=== PATIENT | male | born 1935 | race Caucasian/White ===

== ENCOUNTER 2017-05-14 18:50 | Emergency (ER) | payer MEDICARE ==
--- NOTE | 2017-05-14 19:08 | Emergency Department Record ---
History of Present Illness - General Chief Complaint: Syncope Stated Complaint: SYNCOPE Time Seen by Provider: 05/14/17 19:02 Source: Patient, Family Mode of Arrival: EMS Limitations: No limitations - History of Present Illness Initial Comments: 81 yo male presents by EMS. The patient was taking a nap. He had been napping for about one hour. His reports she heard odd noises from the room. She entered the room and Mr. Chaney was moaning and "slobbering" with snoring like breathing. He would not respond to voice or to her shaking him. No shaking or obvious seizure by the patient. The patient's called EMS. On arrival the patient was found confused and not oriented. On arrival he was oriented to name , place and year. He has no recall of the events. He was incontinent of urine. No recent health concerns or symptoms. He had mowed earlier. He denies pain, headache, chest pain or dizziness. He had mowed the yard earlier in the day and went out for ice cream with his before the nap. PCP is Rodriguez , Cards is [facility]. GALINDO Complaint: Collapsed, Loss of consciousness -: Minutes(s) Prodromal Symptoms: Other (syncope) Description of Event: Incontinence Witnessed: Yes - by bystander Injuries Sustained Associated with Event: None Current Symptoms: None Context: Other (During nap) - [place] Coma Scale Eye Response: (4) Open spontaneously Motor Response: (6) Obeys commands Verbal Response: (5) Oriented N[place] Total: 15 - Related Data Home Medications Medication Instructions Recorded Confirmed Last Taken Clonazepam [Klonopin] 0.5 mg PO QHS 05/14/17 05/14/17 05/13/17 Meloxicam [Mobic] 15 mg PO DAILY 05/14/17 05/14/17 05/14/17 Metoprolol Succinate [Toprol Xl] 50 mg PO DAILY 05/14/17 05/14/17 05/14/17 Pioglitazone HCl [Actos] 30 mg PO DAILY 05/14/17 05/14/17 05/14/17 Simvastatin 40 mg PO DAILY 05/14/17 05/14/17 05/14/17 Tramadol HCl [Ultram] 50 mg PO BID 05/14/17 05/14/17 05/14/17 Allergies Allergy/AdvReac Type Severity Reaction Status Date / Time No Known Drug Allergies Allergy Verified 05/14/17 18:55 Review of Systems Constitutional: Denies: Chills, Fever, Malaise, Weakness Eyes: Denies: Eye discharge, Eye pain, Photophobia, Vision change ENT: Denies: Congestion, Throat pain Respiratory: Denies: Cough, Dyspnea, Hemoptysis, Stridor, Wheezes Cardiovascular: Reports: Syncope. Denies: Chest pain, Palpitations Endocrine: Denies: Fatigue Gastrointestinal: Denies: Abdominal pain, Constipation, Diarrhea, Nausea, Vomiting Genitourinary: Denies: Dysuria, Frequency, Hematuria Musculoskeletal: Denies: Arthralgia, Back pain, Joint swelling, Myalgia Skin: Denies: Bruising, Change in color, Rash Neurological: Reports: Confusion, Seizure. Denies: Headache, Numbness, Vertigo , Weakness Psychiatric: Denies: Anxiety Hematological/Lymphatic: Denies: Blood Clots, Easy bleeding, Easy bruising, Swollen glands Physical Exam - General General Appearance: Alert, Oriented x3, Cooperative, No acute distress, Anxious - Head Head exam: Normal inspection - Eye Eye exam: Normal appearance, PERRL, EOMI. negative: Conjunctival injection, Periorbital swelling - ENT ENT exam: Normal exam, Mucous membranes moist Ear exam: Normal external inspection Nasal Exam: Normal inspection Mouth exam: Normal external inspection - Neck Neck exam: Normal inspection, Full ROM. negative: Tenderness - Respiratory Respiratory exam: Normal lung sounds bilaterally. negative: Respiratory distress - Cardiovascular Cardiovascular Exam: Regular rate, Normal rhythm, Normal heart sounds Peripheral Pulses: 2+: Radial (R), Radial (L) - GI/Abdominal GI/Abdominal exam: Soft. negative: Tenderness - Rectal Rectal exam: Deferred - exam: Deferred - Extremities Extremities exam: Normal inspection, Full ROM, Normal capillary refill. negative: Tenderness - Back Back exam: Reports: Normal inspection, Full ROM. Denies: Muscle spasm, Rash noted, Tenderness - Neurological Neurological exam: Alert, Normal gait, Oriented X3, Reflexes normal - Psychiatric Psychiatric exam: Anxious - Skin Skin exam: Dry, Intact, Normal color, Warm Course - Reevaluation(s) Reevaluation #1: Vitals reviewed EKG 18:55 NSR, Intervals QRS 128 IVCD, QTc 484, axis left, Q is V1-V4, interted T waves new in V1V2, AVL compared to 05-01-16 05/14/17 19:09 Reevaluation #2: On recheck the patient is baseline without complaints or confusion Labs to this point were reviewed WBC 9, Hgb 15 on the CBC On the CMP AG is 18 with a BUN/CR of 30/1.5 Lactic Acid is elevated at 9.[address] was negative for acute bleed or mass. No acute infarct. Carotids noted to be atherosclerotic. Small vessel ischemic disease. Note: The differential certain includes seizure as he is on Tramadol and his Lactic Acid is elevated at 9.1 Arrhythmia is possible with new EKG changes and prolonged Qtc of 485 He appears dehydrated with BUN of 30 and elevation of CR at 1.5 I explained that [facility] does not have cardiology or neurology baton teacher this weekend and recommended transfer to [facility] for admission and consultations. 05/14/17 19:41 Reevaluation #3: Cardiac Enzymes reported Troponin is 0.012 CK is 266 and MG is 6.4 05/14/17 19:50 Reevaluation #4: [facility] at [facility] was contacted for transfer 05/14/17 20:05 05/14/17 20:[address] Campo. He requests a repeat lactic acid to ensure downward trend which will assist him in bed placement choice. The patient and family was updated on plan. Patient remains asymptomatic 05/14/17 20:37 Repeat Lactic Acid is 2.0 [facility] recontacted to update Reevaluation #5: EMS transport in ED Pt is stable at this time for transfer to [facility] 05/14/17 22:52 Medical Decision Making - Lab Data Result diagrams: 05/14/17 18:50 05/14/17 18:50 Disposition Disposition: Transfer Clinical Impression: Elevated lactic acid level, Renal insufficiency, Seizure-like activity Syncope Qualifiers: Syncope type: unspecified Qualified Code(s): R55 - Syncope and collapse Disposition: Acute Care Hospital Transfer Transfer To: [facility] Reason For Transfer: Syncope vs Seizure. Consultations Accepting Physician: Dr Bhakta Time Discussed w/Accepting Physician: 20:04 Condition: (2) Stable Forms: Patient Portal Access Time of Disposition: 19:48 Quality - Quality Measures Quality Measures: N/A - Blood Pressure Screening View Details: Yes Blood Pressure Classification: Pre-Hypertensive BP Reading Systolic Measurement: 143 Diastolic Measurement: 81 Screening for High Blood Pressure: < Pre-Hypertensive BP, F/U Documented > [ G8950] Pre-Hypertensive Follow-up Interventions: Referral to alternative/primary care provider.
[2017-05-14 19:18] LABS: BASO % 0.2 % (0-6); EOS % 2.4 % (0-6); GRAN % 55.8 % (47-80); HEMATOCRIT 44.9 % (42.0-52.0); HEMOGLOBIN 15.6 gm/dl (14.0-18.0); MEAN CELL VOLUME 91.8 fl (81-97); MEAN CORPUSCULAR HEMOGLOBIN 31.9 pg (27-33); MEAN CORPUSCULAR HGB CONC 34.7 g/dl (32-36); MEAN PLATELET VOLUME 8.7 fl (7.4-10.4); MONO % 6.6 % (0-9); PLATELET COUNT 166 K/uL (130-400); RED BLOOD COUNT 4.89 M/uL (4.40-5.70); RED CELL DISTRIBUTION WIDTH 13.6 % (11.5-14.5); WHITE BLOOD COUNT W/O DIFF 9.3 K/uL (4.2-12.2)
[2017-05-14 19:30] LABS: LACTIC ACID 9.1 mmol/L (0.7-2.1)
[2017-05-14 19:32] LABS: INR 1.08; PARTIAL THROMBOPLASTIN TIME 27.3 SECONDS (24.5-39.1); PROTHROMBIN TIME (PATIENT) 11.7 SECONDS (9.5-12.1)
[2017-05-14 19:35] LABS: BLOOD UREA NITROGEN 30 mg/dL (9-20); CREATININE 1.5 mg/dL (0.66-1.25); EST GLOMERULAR FILTRATION RATE 48 ml/min; GLUCOSE,RANDOM 141 mg/dL (70-110)
[2017-05-14 19:36] LABS: ALB/GLOB RATIO 1.6 (1.1-1.8); ALBUMIN 4.9 gm/dL (3.5-5.0); ALKALINE PHOSPHATASE 74 U/L (38-126); ALT/SGPT 43 U/L (21-72); AST/SGOT 37 U/L (17-59); CREATINE PHOSPHOKINASE 266 U/L (55-170)
[2017-05-14] MEDS ORDERED: 0.9 % SODIUM CHLORIDE 1000ML 1,000 ML IV ONE (19:40)
[2017-05-14 19:44] LABS: CKMB 6.4 ug/L (0-6); TROPONIN I < 0.012 ng/mL (0.00-0.034)
[2017-05-14 20:03] LABS: CKMB RELATIVE INDEX 2.41 % (0-4)
[2017-05-14 21:18] LABS: URINE APPEARANCE CLEAR; URINE BILIRUBIN NEGATIVE (NEGATIVE); URINE BLOOD NEGATIVE (NEGATIVE); URINE COLOR YELLOW; URINE GLUCOSE (UA) NEGATIVE (NEGATIVE); URINE KETONE NEGATIVE (NEGATIVE); URINE LEUKOCYTE ESTERASE NEGATIVE (NEGATIVE); URINE NITRITE POSITIVE (NEGATIVE)
[2017-05-14 21:31] LABS: URINE BACTERIA 2+
--- NOTE | 2017-05-15 12:20 | CT SCAN REPORT ---
DATE: 05/14/2017 at 19:14. EXAM: CT OF THE HEAD WITHOUT CONTRAST. HISTORY: Syncopal episode versus seizure. TECHNIQUE: Routine noncontrast CT examination of the head. COMPARISON: None. FINDINGS: The subarachnoid spaces are mildly prominent consistent with atrophy. The ventricles are not enlarged. Mild periventricular and subcortical white matter lucencies are noted in each cerebral hemisphere; primarily in the left parietal lobe. These are nonspecific but likely areas of chronic small-vessel ischemia. No other area of abnormally increased or decreased attenuation is noted throughout the brain substance. No abnormal extra-axial fluid collection nor skull fracture is seen. No asymmetric density of the middle cerebral arteries. There is atherosclerotic calcification of the distal internal carotid arteries and distal vertebral arteries. Minor mucosal thickening is suggested within the inferior aspects of the frontal sinuses, the inferior left sphenoid sinus, and a few bilateral ethmoid air cells. There is opacification of a single posterior right mastoid air cell consistent with retained secretions or mild chronic inflammation. Postcataract surgery changes are noted bilaterally. The orbits as visualized are otherwise unremarkable. IMPRESSION: 1. NO CT EVIDENCE OF ACUTE MAJOR VESSEL INFARCT, INTRACRANIAL HEMORRHAGE, NOR MASS. 2. MILD GENERALIZED ATROPHY. 3. MILD WHITE MATTER LUCENCIES IN EACH CEREBRAL HEMISPHERE, MOST PRONOUNCED IN THE LEFT PARIETAL LOBE. THESE ARE NONSPECIFIC, BUT LIKELY AREAS OF CHRONIC SMALL-VESSEL ISCHEMIA. 4. MINOR MUCOSAL THICKENING IN A FEW PARANASAL SINUSES. OPACIFICATION OF A SINGLE POSTERIOR RIGHT MASTOID AIR CELL. JOB NUMBER: [id number] [facility]
== END 2017-05-14 23:10 | disposition short-term general hospital (02) ==
LOC: ER 18:50
DX: R55 Syncope and collapse (principal); R74.0 Nonspecific elevation of levels of transaminase and lactic acid dehydrogenase [LDH]; N28.9 Disorder of kidney and ureter, unspecified; R56.9 Unspecified convulsions; E11.9 Type 2 diabetes mellitus without complications
CPT/HCPCS: 70450; 80053; 81001; 82550; 82553; 83605; 83735; 84484; 85025; 85610; 85730; 93005; 93010; 99284; 99285

== ENCOUNTER 2017-12-13 10:37 | Emergency (ER) | payer MEDICARE ==
[2017-12-13] MEDS ORDERED: HYDROCODONE/APAP 5/325MG TABLET PO ONE (10:59)
--- NOTE | 2017-12-13 11:03 | Emergency Department Record ---
History of Present Illness - General Chief Complaint: Back Pain/Injury Stated Complaint: BACK INJURY Time Seen by Provider: 12/13/17 10:52 Source: Patient Mode of Arrival: Ambulatory Limitations: No limitations - History of Present Illness Initial Comments: The patient is here due to L lower back pain for 2 days. He was snowblowing 2 days ago and then noticed L lower back pain. The pain is sharp and stabbing and intermittently radiates to the back of the L thigh. There has been no leg weakness, numbness, or any bowel or bladder issues. Movement and twisting increase the pain and there basically is no pain unless moving. The patient denies any fall or trauma and is ambulating normally. MD Complaint: Back pain Onset/Timin -: Days(s) Place: Home Radiation: Left leg Severity: Moderate Severity scale (1-10): 8 Quality: Aching Consistency: Intermittent Improves With: Immobilization Worsens With: Movement Context: Other Associated Symptoms: Denies other symptoms Treatment Prior to Arrival Comment:: flexeril 0700, ultram - Related Data Previous Rx's Medication Instructions Recorded Hydrocodone/Acetaminophen [Horse Shoe 1 each PO QID #20 tablet 12/13/17 5-325 Tablet] Allergies Allergy/AdvReac Type Severity Reaction Status Date / Time tramadol [From Ultram] AdvReac Severe seizures Verified 12/13/17 11:37 Travel Screening - Travel/Exposure Within Last 30 Days Have you traveled within the last 30 days?: No Review of Systems Constitutional: Denies: Chills, Fever Eyes: Denies: Eye discharge ENT: Denies: Congestion Respiratory: Denies: Cough, Dyspnea Past Medical History - SOCIAL HISTORY Smoking Status: Never smoker Alcohol Use: None Drug Use: None - RESPIRATORY Hx Respiratory Disorders: No - CARDIOVASCULAR Hx Cardio Disorders: Yes Hx Hypertension: Yes Comment:: Cardaic bypass - NEURO Hx Neuro Disorders: Yes Hx Seizures: Yes - GI Hx GI Disorders: No - Hx Genitourinary Disorders: No - ENDOCRINE Hx Endocrine Disorders: Yes Hx Diabetes: Yes (Type 2) Hx Thyroid Disease: No - MUSCULOSKELETAL Hx Musculoskeletal Disorders: Yes Hx Arthritis: Yes - PSYCH Hx Psych Problems: No - HEMATOLOGY/ONCOLOGY Hx Hematology/Oncology Disorders: No Family Medical History Any Significant Family History?: No Physical Exam - General General Appearance: Alert, Oriented x3, Cooperative, No acute distress - Head Head exam: Atraumatic, Normocephalic, Normal inspection - Eye Eye exam: Normal appearance, PERRL - Neck Neck exam: Normal inspection, Full ROM. negative: Tenderness - Respiratory Respiratory exam: Normal lung sounds bilaterally. negative: Respiratory distress - Cardiovascular Cardiovascular Exam: Regular rate, Normal rhythm, Normal heart sounds - GI/Abdominal GI/Abdominal exam: Soft. negative: Tenderness - Extremities Extremities exam: Normal inspection, Full ROM, Normal capillary refill, Other ( Neg SLR bilaterally.). negative: Tenderness - Back Back exam: Reports: Normal inspection, Muscle spasm, Paraspinal tenderness (L lower lumbar L5-S1.). Denies: Vertebral tenderness - Neurological Neurological exam: Alert, Normal gait, Oriented X3, Reflexes normal. negative: Abnormal gait, Motor sensory deficit Course Vital Signs 12/13/17 10:42 Temperature 97.7 F Pulse Rate 66 Respiratory 20 Rate Blood Pressure 137/78 Pulse Ox 97 - Reevaluation(s) Reevaluation #1: The patient is doing better at this time. His pain is much better and he is ambulating normally. I did discuss the xrays with the patient and the need for F /U with his PCP. 12/13/17 11:58 Medical Decision Making - Data Complexity MDM Data: X-Ray Ordered and/or Reviewed - Radiology Data Radiology results: Report reviewed (LS Spine: Neg for any acute process, significant DDD. ) Disposition Disposition: Discharge Clinical Impression: Low back pain Qualifiers: Chronicity: acute Back pain laterality: unspecified Sciatica presence: without sciatica Qualified Code(s): M54.5 - Low back pain Disposition: Home, Self-Care Condition: (2) Stable Instructions: Low Back Strain (ED) Additional Instructions: Please do not lift or snowblow for a week. Take the Horse Shoe as directed and see Dr. Frias later this week for further evaluation. Return to the ER for any worsening pain, fever, leg weakness or numbness or any bowel or bladder issues. Prescriptions: Hydrocodone/Acetaminophen [Horse Shoe 5-325 Tablet] 1 each PO QID #20 tablet Forms: Patient Portal Access Time of Disposition: 12:01 Quality - Quality Measures Quality Measures: N/A - Blood Pressure Screening View Details: Yes Does Patient Have Any of the Following: No Blood Pressure Classification: Pre-Hypertensive BP Reading Systolic Measurement: 137 Diastolic Measurement: 78 Screening for High Blood Pressure: < Pre-Hypertensive BP, F/U Documented > [ G8950] Pre-Hypertensive Follow-up Interventions: Referral to alternative/primary care provider.
--- NOTE | 2017-12-13 13:23 | RADIOLOGY REPORT ---
EXAM: LUMBAR SPINE COMPLETE HISTORY: LEFT SIDED BACK PAIN AFTER SHOVELING SNOW. TECHNIQUE: AP, lateral, and both oblique views of the lumbar spine were obtained as well as spot lateral views of the thoracolumbar and lumbosacral junctions. Comparison: Unilateral left hip dated 09/30/17. Two view chest radiographic examination dated 09/15/11. FINDINGS: Mild osteopenia. There is mild levoconvex curvature involving the lower thoracic and upper portions of the spine centered at the L1-L2 level. There is Grade 1 anterolisthesis of L4 on L5. The vertebral bodies are otherwise normal in alignment and height. No acute fracture is seen. No lytic or blastic bone lesion identified. Multilevel degenerative disk/degenerative end plate changes are present most pronounced at the L1-L2 and L2-L3 levels where the changes are moderate in degree. Multilevel bilateral facet arthropathy is present most pronounced at the lower levels where the changes are moderate to advanced. There is diffuse atherosclerosis without aneurysmal dilatation of the abdominal aorta. IMPRESSION: 1. MULTILEVEL DEGENERATIVE CHANGES, DISCUSSED ABOVE. 2. NO ACUTE FRACTURE OR SUSPICIOUS SUBLUXATION. 3. 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 JOB NUMBER: [id number] [facility]
== END 2017-12-13 12:12 | disposition home or self-care (01) ==
LOC: ER 10:37
DX: G89.11 Acute pain due to trauma (principal); M54.5 Low back pain; X50.3XXA Overexertion from repetitive movements, initial encounter; Y93.29 Activity, other involving ice and snow; I10 Essential (primary) hypertension; Y92.008 Other place in unspecified non-institutional (private) residence as the place of occurrence of the external cause
CPT/HCPCS: 72110; 99283

== ENCOUNTER 2018-04-30 16:22 | Inpatient (IN) | payer MEDICARE ==
--- NOTE | 2018-04-30 16:52 | Emergency Department Record ---
History of Present Illness - General Chief Complaint: Fever Stated Complaint: FEVER,CHEST COLD Time Seen by Provider: 04/30/18 16:47 Source: Patient Mode of Arrival: Ambulatory Limitations: No limitations - History of Present Illness Initial Comments: The patient is here due to a 3-4 day hx of cough, nasal congestion, colored sputum production and now sharp pleuritic L posterior CP. He has felt that he has had a fever at home at times. He denies any anterior L CP, or coughing up any blood. The patient also denies any hx of blood clots and any hx of leg swelling or pain. MD Complaint: Weakness, Other Onset/Timin -: Days(s) Associated Symptoms: Chest pain, Cough, Nasal congestion, Shortness of breath - Related Data Home Medications Medication Instructions Recorded Confirmed Last Taken Zonisamide 200 mg PO QHS 04/30/18 04/30/18 1 Day Ago ~04/29/18 Allergies Allergy/AdvReac Type Severity Reaction Status Date / Time tramadol [From Ultram] AdvReac Severe seizures Verified 04/30/18 16:42 Travel Screening - Travel/Exposure Within Last 30 Days Have you traveled within the last 30 days?: No - Travel/Exposure Within Last Year Have you traveled outside the [place] in the last year?: No - Additonal Travel Details Have you been exposed to anyone with a communicable illness?: No - Travel Symptoms Symptom Screening: None Review of Systems Constitutional: Reports: Chills, Fever, Malaise Eyes: Denies: Eye discharge ENT: Reports: Congestion Respiratory: Reports: Cough, Dyspnea Cardiovascular: Reports: Chest pain. Denies: Arrhythmia Endocrine: Denies: Fatigue Gastrointestinal: Denies: Abdominal pain, Nausea Genitourinary: Denies: Dysuria Musculoskeletal: Denies: Arthralgia Past Medical History - SOCIAL HISTORY Smoking Status: Never smoker Alcohol Use: None Drug Use: None - RESPIRATORY Hx Respiratory Disorders: No - CARDIOVASCULAR Hx Cardio Disorders: Yes Hx Hypertension: Yes Comment:: Cardaic bypass - NEURO Hx Neuro Disorders: Yes Hx Seizures: Yes - GI Hx GI Disorders: No - Hx Genitourinary Disorders: No - ENDOCRINE Hx Endocrine Disorders: Yes Hx Diabetes: Yes (Type 2) Hx Thyroid Disease: No - MUSCULOSKELETAL Hx Musculoskeletal Disorders: Yes Hx Arthritis: Yes - PSYCH Hx Psych Problems: No - HEMATOLOGY/ONCOLOGY Hx Hematology/Oncology Disorders: No Family Medical History Any Significant Family History?: Yes Physical Exam - General General Appearance: Alert, Oriented x3, Cooperative, No acute distress - Head Head exam: Atraumatic, Normocephalic, Normal inspection - Eye Eye exam: Normal appearance, PERRL, EOMI - ENT Throat exam: Normal inspection. negative: Tonsillar erythema, Tonsillar exudate - Neck Neck exam: Normal inspection, Full ROM. negative: Tenderness - Respiratory Respiratory exam: Normal lung sounds bilaterally, Chest wall tenderness (There is some L lateral posterior inferior rib tenderness to palpation.). negative: Respiratory distress - Cardiovascular Cardiovascular Exam: Regular rate, Normal rhythm, Normal heart sounds - GI/Abdominal GI/Abdominal exam: Soft, Normal bowel sounds. negative: Tenderness - Extremities Extremities exam: Normal inspection, Full ROM, Normal capillary refill. negative: Calf tenderness, Pedal edema, Tenderness - Back Back exam: Reports: Normal inspection - Neurological Neurological exam: Alert. negative: Motor sensory deficit - Skin Skin exam: negative: Rash Course Vital Signs 04/30/18 16:33 Temperature 98.8 F Pulse Rate 94 H Respiratory 24 Rate Blood Pressure 140/76 Pulse Ox 94 L - Reevaluation(s) Reevaluation #1: The patient is doing a lot better at this time. His pain is much improved with the pain medicines and his breathing is not labored. The CT does not demonstrate any PE but just shows the significant pneumonia in the LLL. Due to that fact I did recommend hospital admission and the patient did agree. I then did discuss the case with Teresa ([employer]) and she does accept the admission for Dr. Fisher. 04/30/18 18:33 Medical Decision Making - Data Complexity MDM Data: Labs Ordered and/or Reviewed, X-Ray Ordered and/or Reviewed, EKG Ordered and/or Reviewed - Lab Data Result diagrams: 05/01/18 06:15 04/30/18 16:45 - EKG Data -: EKG Interpreted by Me EKG: No Acute Changes, Unchanged From Previous - Radiology Data Radiology results: Report reviewed (CXR: LLL infiltrate. Chest CT: Neg for PE and positive for pneumonia.) Disposition Disposition: Admit Clinical Impression: Pneumonia Qualifiers: Pneumonia type: due to unspecified organism Laterality: left Lung location: lower lobe of lung Qualified Code(s): J18.1 - Lobar pneumonia, unspecified organism Disposition: Still a Patient at [facility] Decision to Admit: Admit from ER Decision to Admit Date: 04/30/18 Decision to Admit Time: 18:35 Accepting Physician: Natalia. Time Discussed w/Accepting Physician: 18:35 Condition: (2) Stable Time of Disposition: 18:35 Quality - Quality Measures Quality Measures: N/A - Blood Pressure Screening View Details: Yes Does Patient Have Any of the Following: Active Dx of HTN Blood Pressure Classification: Hypertensive Reading Systolic Measurement: 140 Diastolic Measurement: 76 Screening for High Blood Pressure: Patient Exclusion, Hx of HTN [G9744]
[2018-04-30 17:05] LABS: BASO % 0.1 % (0-6); EOS % 0.2 % (0-6); GRAN % 79.3 % (47-80); HEMATOCRIT 37.5 % (42.0-52.0); HEMOGLOBIN 12.7 gm/dl (14.0-18.0); LYMPH % 12.1 % (16-45); MEAN CELL VOLUME 91.2 fl (81-97); MEAN CORPUSCULAR HEMOGLOBIN 30.9 pg (27-33); MEAN CORPUSCULAR HGB CONC 33.9 g/dl (32-36); MEAN PLATELET VOLUME 8.2 fl (7.4-10.4); MONO % 8.3 % (0-9); PLATELET COUNT 310 K/uL (130-400); RED BLOOD COUNT 4.11 M/uL (4.40-5.70); RED CELL DISTRIBUTION WIDTH 13.6 % (11.5-14.5)
[2018-04-30 17:18] LABS: BLOOD UREA NITROGEN 23 mg/dL (8-23); EST GLOMERULAR FILTRATION RATE > 60 mL/min; INR 1.2; PARTIAL THROMBOPLASTIN TIME 37.5 SECONDS (24.5-39.1); PROTHROMBIN TIME (PATIENT) 13.1 SECONDS (9.5-12.1)
[2018-04-30 17:21] LABS: GLUCOSE,RANDOM 238 mg/dL (74-109)
[2018-04-30] MEDS ORDERED: 0.9 % SODIUM CHLORIDE 1,000 ML BAG IV ONE (17:22)
[2018-04-30 17:23] LABS: CREATINE PHOSPHOKINASE 150 U/L (39-308)
[2018-04-30 17:25] LABS: CKMB 2.4 ng/mL (<6.73)
[2018-04-30] MEDS ORDERED: MORPHINE SULFATE 10 MG/ML VIAL IVP ONE (18:01)
[2018-04-30] MEDS ORDERED: ONDANSETRON HCL IV 4 MG/2 ML VIAL IVP ONE (18:01)
[2018-04-30] MEDS ORDERED: AZITHROMYCIN 500 MG in 0.9 % SODIUM CHLORIDE 250ML 250 ML IVPB ONE (18:03)
[2018-04-30] MEDS ORDERED: CEFTRIAXONE SODIUM 1 GM in 0.9 % SODIUM CHLORIDE 100ML 100 ML IVPB ONE (18:03)
[2018-04-30] MEDS ORDERED: ONDANSETRON HCL IV 4 MG/2 ML VIAL IVP PRN (19:43)
[2018-04-30] MEDS ORDERED: MORPHINE SULFATE 4MG/ML PREFILLED SYRINGE IVP PRN (19:43)
[2018-04-30] MEDS: CEFTRIAXONE SODIUM 1 GM in 0.9 % SODIUM CHLORIDE 100ML 100 ML IVPB SCH (19:44)
[2018-04-30] MEDS: IPRATROPIUM/ALBUTEROL (0.5MG/3MG) NEB INH PRN (21:37)
[2018-04-30] MEDS ORDERED: SIMVASTATIN 20 MG TABLET PO SCH (22:00)
[2018-04-30] MEDS ORDERED: ZONISAMIDE 100 MG PO SCH (22:00)
[2018-04-30] MEDS: ZONISAMIDE 100 MG PO SCH (22:17)
[2018-04-30] MEDS ORDERED: MORPHINE SULFATE 4 MG/ML VIAL IVP PRN (22:30)
[2018-04-30] MEDS ORDERED: MORPHINE SULFATE 10 MG/ML VIAL IVP PRN (23:00)
[2018-05-01] MEDS: ACETAMINOPHEN 500 MG TABLET PO PRN ×2 (05:15→18:52)
[2018-05-01] MEDS: IPRATROPIUM/ALBUTEROL (0.5MG/3MG) NEB INH PRN ×2 (05:19→20:59)
[2018-05-01 06:27] LABS: BASO % 0.2 % (0-6); EOS % 0.5 % (0-6); GRAN % 74.2 % (47-80); HEMOGLOBIN 11.4 gm/dl (14.0-18.0); LYMPH % 15.6 % (16-45); MEAN CELL VOLUME 92.4 fl (81-97); MEAN CORPUSCULAR HGB CONC 33.5 g/dl (32-36); MEAN PLATELET VOLUME 8.2 fl (7.4-10.4); MONO % 9.5 % (0-9); PLATELET COUNT 264 K/uL (130-400); RED BLOOD COUNT 3.68 M/uL (4.40-5.70); RED CELL DISTRIBUTION WIDTH 13.6 % (11.5-14.5); WHITE BLOOD COUNT W/O DIFF 14.7 K/uL (4.2-12.2)
[2018-05-01 06:33] LABS: MEAN CORPUSCULAR HEMOGLOBIN 30.9 pg (27-33)
[2018-05-01 06:48] LABS: CKMB 1.8 ng/mL (<6.73)
[2018-05-01] MEDS ORDERED: MORPHINE SULFATE 10 MG/ML VIAL IVP PRN (08:13)
[2018-05-01] MEDS: CEFTRIAXONE SODIUM 1 GM in 0.9 % SODIUM CHLORIDE 100ML 100 ML IVPB SCH ×2 (08:30→21:44)
--- NOTE | 2018-05-01 09:26 | History & Physical ---
History of Present Illness - Date of Service Date of Service for History & Physical: 05/01/18 - History of Present Illness Admitting Diagnosis: 1. Acute Left Lower Lobe Pneumonia History of Present Illness: 82 yo male admitted for LLL PNA. PMH HTN, DM, and hyperlipidemia. Surgical hx of CABG x2 vessels, denies ND. Pt reported 3-5 days of fever and cough with discolored sputum. Denies any bloody sputum or hx of blood clots, leg pain or swelling. Pt ambulated into ER under his own power, c/o L post chest pain. Denied ant or substernal CP. 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 Admit for PNA with serial cardiac enzymes. Pt did not have BP noted through the night but AM BP stable. POC Continue Azithromycin and Rocephin, monitor cardiac enzymes, cont cardiac monitoring, pain mgt, VS q 4hrs. Monitor BG ac/hs, will add insulin s/s if elevation over 180 is noted. Pt did not req resp tx but PRN orders still remain. 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 in the last year?: No - Additonal Travel Details Have you been exposed to anyone with a communicable illness?: No - Travel Symptoms Symptom Screening: Fever (Subjective), Lack of Appetite - Additional Travel Comment Additional Travel/Exposure Comment: fever, decreased appetite x 2 days Review of Systems Constitutional: Reports: Chills, Fever, Malaise Eyes: Denies: Eye discharge ENT: Reports: Congestion Respiratory: Reports: Cough, Dyspnea Cardiovascular: Reports: Chest pain. Denies: Arrhythmia, Murmurs, Orthopnea Endocrine: Denies: Fatigue Gastrointestinal: Denies: Abdominal pain, Nausea Genitourinary: Denies: Dysuria Musculoskeletal: Denies: Arthralgia Skin: Denies: Bruising Neurological: Denies: Abnormal gait Hematological/Lymphatic: Denies: Easy bleeding, Easy bruising Past Medical History - SOCIAL HISTORY Smoking Status: Former smoker Alcohol Use: None Drug Use: None - RESPIRATORY Hx Respiratory Disorders: No Hx Sleep Apnea: Yes Hx of CPAP: Yes (does not use) - CARDIOVASCULAR Hx Cardio Disorders: Yes Hx Hypertension: Yes Comment:: Cardiac bypass - NEURO Hx Neuro Disorders: Yes Hx Seizures: Yes (occurred 2 years ago, none since) Comment:: due for EEG 05/25/2018 - GI Hx GI Disorders: No Hx Hiatal Hernia: Yes - Hx Genitourinary Disorders: No Comment:: nocturia - ENDOCRINE Hx Endocrine Disorders: Yes Hx Diabetes: Yes (Type 2) Hx Thyroid Disease: No - MUSCULOSKELETAL Hx Musculoskeletal Disorders: Yes Hx Arthritis: Yes (knees) Comment:: has tingling down right leg related to ruptured disc - PSYCH Hx Psych Problems: No - HEMATOLOGY/ONCOLOGY Hx Hematology/Oncology Disorders: No Family Medical History Any Significant Family History?: Yes Hx Cancer: Father H&P Meds/Allergies - Allergies Allergies: Allergies Allergy/AdvReac Type Severity Reaction Status Date / Time tramadol [From Ultram] AdvReac Severe seizures Verified 04/30/18 16:42 - Home Medications Home Medications Medication Instructions Recorded Confirmed Last Taken Zonisamide 200 mg PO QHS 04/30/18 04/30/18 1 Day Ago ~04/29/18 - Active Medications Active Medications: Current Medications Acetaminophen (Tylenol 500mg Tab) 500 mg PO Q6H PRN PRN Reason: PAIN - MILD(1-4)/FEVER Last Admin: 05/01/18 05:15 Dose: 500 mg Albuterol/Ipratropium (Duoneb) 3 ml INH RESP.Q4H PRN PRN Reason: WHEEZING Last Admin: 05/01/18 05:19 Dose: 3 ml Azithromycin 500 mg/ Sodium (Chloride) 250 mls @ 250 mls/hr IVPB Q24H RUT Stop: 05/06/18 18:46 Ceftriaxone Sodium 1 gm/ (Sodium Chloride) 100 mls @ 100 mls/hr IVPB Q12H [facility] Stop: 05/05/18 19:44 Last Admin: 04/30/18 19:44 Dose: Not Given Meloxicam (Mobic) 15 mg PO DAILY [facility] Metoprolol Succinate (Toprol Xl) 50 mg PO DAILY [facility] Morphine Sulfate (Morphine Sulfate) 2 mg IVP Q4H PRN PRN Reason: PAIN - MILD TO MODERATE (1-7) Ondansetron HCl (Zofran) 4 mg IVP Q4H PRN PRN Reason: NAUSEA Last Admin: 04/30/18 22:46 Dose: 4 mg Patient Own Med: Zonisamide 100mg Capsules 2 each PO QHS [facility] Last Admin: 04/30/18 22:17 Dose: Not Given Pioglitazone HCl (Actos) 30 mg PO DAILY [facility] Simvastatin (Zocor) 40 mg PO QAM [facility] Physical Exam - Vital Signs Vital Signs: Vital Signs - Last 24 Hrs Temp Pulse Pulse Resp BP BP BP 05/01/18 05:19 87 18 04/30/18 21:37 95 H 18 04/30/18 19:45 99.2 F 99 H 20 125/68 04/30/18 19:30 100.0 F H 99 H 20 112/68 04/30/18 18:30 101 H 19 122/78 04/30/18 17:32 94 H 24 115/91 04/30/18 16:33 98.8 F 94 H 24 140/76 Pulse Ox 05/01/18 05:19 96 04/30/18 21:37 100 04/30/18 19:45 97 04/30/18 19:30 96 04/30/18 18:30 96 04/30/18 17:32 97 04/30/18 16:33 94 L - General General Appearance: Alert, Oriented x3, Cooperative, No acute distress Limitations: No limitations - Head Head exam: Atraumatic, Normocephalic, Normal inspection - Eye Eye exam: Normal appearance, PERRL, EOMI - ENT ENT exam: Normal exam Ear exam: Normal external inspection Mouth exam: Normal external inspection Throat exam: Normal inspection. negative: Tonsillar erythema, Tonsillar exudate - Neck Neck exam: Normal inspection, Full ROM. negative: Tenderness - Respiratory Respiratory exam: Normal lung sounds bilaterally, Chest wall tenderness (There is some L lateral posterior inferior rib tenderness to palpation.). negative: Respiratory distress - Cardiovascular Cardiovascular Exam: Regular rate, Normal rhythm, Normal heart sounds Peripheral Pulses: 2+: Radial (R), Radial (L), Dorsalis Pedis (R), Dorsalis Pedis (L) - GI/Abdominal GI/Abdominal exam: Soft, Normal bowel sounds. negative: Tenderness - Rectal Rectal exam: Deferred - exam: Deferred - Extremities Extremities exam: Normal inspection, Full ROM, Normal capillary refill. negative: Calf tenderness, Pedal edema, Tenderness - Back Back exam: Reports: Normal inspection - Neurological Neurological exam: Alert. negative: Motor sensory deficit - Psychiatric Psychiatric exam: Normal affect, Normal mood - Skin Skin exam: Dry, Intact, Warm. negative: Rash Results - Labs Result Diagrams: 05/01/18 06:15 04/30/18 16:45 Labs Last 24 Hours: Laboratory Results - last 24 hr 04/30/18 04/30/18 04/30/18 16:45 16:45 16:45 WBC 15.0 H RBC 4.11 L Hgb 12.7 L Hct 37.5 L MCV 91.2 MCH 30.9 MCHC 33.9 RDW 13.6 Plt Count 310 MPV 8.2 Gran % 79.3 Lymphocytes % 12.1 L Monocytes % 8.3 Eosinophils % 0.2 Basophils % 0.1 PT 13.1 H INR 1.2 APTT 37.5 D-Dimer 2.22 H Sodium 136 Potassium 4.0 Chloride 96 L Carbon Dioxide 23.0 Anion Gap 17.0 H BUN 23 Creatinine 1.0 Estimated GFR > 60 POC Glucose Random Glucose 238 H Calcium 8.6 L Creatine Kinase 150 CK-MB (CK-2) 2.4 Troponin T 0.020 H 05/01/18 05/01/18 05/01/18 06:15 06:15 06:53 WBC 14.7 H RBC 3.68 L Hgb 11.4 L Hct 34.0 L MCV 92.4 MCH 30.9 MCHC 33.5 RDW 13.6 Plt Count 264 MPV 8.2 Gran % 74.2 Lymphocytes % 15.6 L Monocytes % 9.5 H Eosinophils % 0.5 Basophils % 0.2 PT INR APTT D-Dimer Sodium Potassium Chloride Carbon Dioxide Anion Gap BUN Creatinine Estimated GFR POC Glucose 171 H Random Glucose Calcium Creatine Kinase CK-MB (CK-2) 1.8 Troponin T 0.021 H - Imaging and Cardiology CT scan - chest Status: Report reviewed (audio report reviewed) Chest x-ray Status: Report reviewed (audio clip reviewed) VTE H&P Assessment - Risk for VTE Risk for VTE: Yes Risk Level: Moderate Risk Assessment Date: 05/01/18 Risk Assessment Time: 10:11 VTE Orders Placed or Will Be Placed: Yes Plan - Inpatient Certification Inpatient Certification: Admit to inpatient care: Based on my medical assessment, after consideration of patient's risk factors (age, co-morbidities and patient presenting symptoms and acuity), I expect that this patient will remain in the hospital greater than or equal to two midnights and that the services needed warrant inpatient care because: Patient Risk Factors: PNA, req IV abx, repeat labs, continued cardiac monitoring and enzyme review Estimated length of stay: The patient may reasonably be expected to be discharged or transferred to a hospital within 96 hours after admission to [facility]. Services needed: cardiac monitoring, labs, IV ABX Post hospital care (if known): [] I certify that my determination is in accordance with my understanding of Medicare requirements for reasonable and necessary inpatient services. 05/01/18 10:11 - Detailed Diagnosis and Plan (1) Pneumonia Current Visit: Yes Status: Acute Qualifiers: Pneumonia type: due to unspecified organism Laterality: left Lung location: lower lobe of lung Qualified Code(s): J18.1 - Lobar pneumonia, unspecified organism Base Code: J18.9 - PNEUMONIA, UNSPECIFIED ORGANISM Comment: 05/01/18 -PNA LLL, started Azith 500mg Rocephin 1gm, -CXR and CTA positive PNA, negative for PE -infreq cough -pain controlled with morhpine, was getting 4mg morphine but decreased to 2mg morphine q4hr PRN -cardiac enzymes abnormal but not significantly elevated, repeat 1400 (2) DVT (deep venous thrombosis) Current Visit: Yes Status: Acute Base Code: I82.409 - ACUTE EMBOLISM AND THOMBOS UNSP DEEP VN UNSP LOWER EXTREMITY Comment: 05/01/18 lovenox 40mg sq (3) Full code status Current Visit: Yes Status: Acute Base Code: Z78.9 - OTHER SPECIFIED HEALTH STATUS Comment: 05/01/18 full code
[2018-05-01] MEDS: PIOGLITAZONE HCL 15 MG TABLET PO SCH (09:30)
[2018-05-01] MEDS: MELOXICAM 7.5 MG TABLET PO SCH (09:30)
[2018-05-01] MEDS: SIMVASTATIN 20 MG TABLET PO SCH (09:30)
[2018-05-01] MEDS: METOPROLOL SUCC 50 MG TABLET PO SCH (09:30)
[2018-05-01] MEDS: ENOXAPARIN 40 MG/0.4 ML SYR SQ SCH (12:09)
[2018-05-01] MEDS: NOVOLOG FLEXPEN (INSULIN ASPART) 100 UNITS/ML SQ SCH (17:45)
[2018-05-01] MEDS ORDERED: AZITHROMYCIN 500 MG in 0.9 % SODIUM CHLORIDE 250ML 250 ML IVPB SCH (18:45)
[2018-05-01] MEDS: ZONISAMIDE 100 MG PO SCH (21:47)
[2018-05-02 06:18] LABS: HEMATOCRIT 36.8 % (42.0-52.0); HEMOGLOBIN 12.1 gm/dl (14.0-18.0); MEAN CELL VOLUME 92.5 fl (81-97); MEAN CORPUSCULAR HEMOGLOBIN 30.4 pg (27-33); MEAN CORPUSCULAR HGB CONC 32.9 g/dl (32-36); MEAN PLATELET VOLUME 8.3 fl (7.4-10.4); PLATELET COUNT 287 K/uL (130-400); RED BLOOD COUNT 3.98 M/uL (4.40-5.70); RED CELL DISTRIBUTION WIDTH 13.6 % (11.5-14.5); WHITE BLOOD COUNT W/O DIFF 13.2 K/uL (4.2-12.2)
[2018-05-02 06:37] LABS: BLOOD UREA NITROGEN 23 mg/dL (8-23); CREATININE 0.9 mg/dL (0.7-1.2); EST GLOMERULAR FILTRATION RATE > 60 mL/min; GLUCOSE,RANDOM 179 mg/dL (74-109)
--- NOTE | 2018-05-02 07:55 | RADIOLOGY REPORT ---
EXAM: CHEST, TWO VIEWS HISTORY: WORSENING CONGESTION AND FEVER FOR FIVE DAYS. PRIOR BYPASS. TECHNIQUE: Upright PA and lateral views of the chest were obtained. Comparison: Two view chest radiographic examination dated 09/15/11. FINDINGS: Post median sternotomy changes are redemonstrated. The heart projects within the limits of normal in size. No pulmonary venous hypertension is seen. The thoracic aorta is tortuous and atherosclerotic. There are mixed opacities scattered throughout the lower left lung consistent with infiltrate, edema, or atelectasis. The right lung and pleural space are grossly clear. A tiny left basilar pleural effusion is possible. No pneumothorax. IMPRESSION: 1. POST MEDIAN STERNOTOMY CHANGES REDEMONSTRATED. 2. MIXED OPACITIES SCATTERED WITHIN THE LOWER LEFT LUNG CONSISTENT WITH INFILTRATE, EDEMA AND/OR ATELECTASIS. POSSIBLE SMALL LEFT BASILAR PLEURAL EFFUSION. JOB NUMBER: [id number] MTDD
--- NOTE | 2018-05-02 08:15 | CT ANGIOGRAM REPORT ---
EXAM: CT ANGIOGRAM OF THE CHEST FOR PULMONARY EMBOLUS HISTORY: LEFT CHEST PAIN AND CONGESTION FOR FIVE DAYS. ELEVATED D-DIMER. TECHNIQUE: Routine CTA examination of the chest was performed utilizing a pulmonary embolus protocol with 95 ml of Omnipaque 350 utilized. Coronal and sagittal maximum intensity projection reformatted images are generated and reviewed. Comparison: Same day two view chest radiographic examination. CT of the chest with contrast dated 10/11/08. FINDINGS: Opacification of the pulmonary arteries is satisfactory for interpretation though evaluation of the segmental arteries of the lower lungs is limited by motion artifact. No luminal filling defect is noted in the outflow tract, main arteries, lobar arteries, nor the proximal segmental arteries that are unaffected by respiratory motion. Post median sternotomy changes are identified. The heart is near the upper limits of normal in size with the left ventricular chamber borderline to mildly dilated. The thoracic aorta is tortuous and atherosclerotic, but without focal aneurysmal dilatation nor evidence of dissection. There is diffuse atherosclerosis of the [place] coronary arteries. Post mediastinal changes identified. No mediastinal or hilar mass/lymphadenopathy is seen. There is redemonstration of a nodule within the lower left thyroid lobe measuring approximately 2.4 x 1.5 cm. This has not significantly changed since 2007 suggesting a benign nodule. The central airways are clear. There is a small dependent left pleural effusion which appears somewhat loculated at the mid level. There is consolidation of the posterior and medial basal segments of the left lower lobe and additional patchy opacities scattered within the remainder of the left lower lobe and lingula suspicious for pneumonia. Minor linear scarring versus atelectasis within the right lung base. There is a calcified granuloma within the lingula. The adrenal glands are not enlarged. The gallbladder is surgically absent. There are degenerative changes scattered throughout the visualized spine. No lytic or blastic bone lesion. IMPRESSION: 1. NO CONVINCING CTA EVIDENCE OF ACUTE PULMONARY EMBOLIC DISEASE THOUGH EVALUATION OF THE SEGMENTAL ARTERIES, PARTICULARLY THOSE OF THE LOWER LUNGS IS LIMITED BY RESPIRATORY MOTION. 2. CONSOLIDATION OF THE POSTEROMEDIAL LEFT LOWER LOBE WITH ADDITIONAL PATCHY AIR SPACE DISEASE WITHIN THE REMAINDER OF THE LEFT LOWER LOBE AND LINGULA CONSISTENT WITH PNEUMONIA. SMALL LEFT PLEURAL EFFUSION WITH POSSIBLE LOCULATION NEAR ITS SUPERIOR ASPECT. 3. POST MEDIAN STERNOTOMY. 4. STABLE LEFT THYROID LOBE NODULE. JOB NUMBER: [id number] [facility]
[2018-05-02] MEDS: NOVOLOG FLEXPEN (INSULIN ASPART) 100 UNITS/ML SQ SCH ×3 (08:37→17:13)
[2018-05-02] MEDS ORDERED: SODIUM CHLORIDE 0.9% IVPB SCH (09:30)
[2018-05-02] MEDS ORDERED: CEFEPIME HCL IVPB SCH (09:30)
[2018-05-02] MEDS ORDERED: AZITHROMYCIN 250 MG TABLET PO SCH (10:00)
[2018-05-02] MEDS: CEFTRIAXONE SODIUM 1 GM in 0.9 % SODIUM CHLORIDE 100ML 100 ML IVPB SCH (10:13)
[2018-05-02] MEDS: PIOGLITAZONE HCL 15 MG TABLET PO SCH (10:14)
[2018-05-02] MEDS: MELOXICAM 7.5 MG TABLET PO SCH (10:14)
[2018-05-02] MEDS: METOPROLOL SUCC 50 MG TABLET PO SCH (10:14)
[2018-05-02] MEDS: SIMVASTATIN 20 MG TABLET PO SCH (10:14)
[2018-05-02] MEDS: CEFEPIME HCL 2 GM in 0.9% SODIUM CHLORIDE 50ML 50 ML IVPB SCH ×2 (10:14→17:12)
[2018-05-02] MEDS: ENOXAPARIN 40 MG/0.4 ML SYR SQ SCH (10:14)
--- NOTE | 2018-05-02 14:41 | Physician Progress Note ---
Subjective - Date Date of Physician Progress Note: 05/02/18 Objective - Vital Signs Vital Signs: Vital Signs - Last 24 Hrs Temp Pulse Pulse Resp BP Pulse Ox 05/02/18 12:00 98.6 F 90 18 123/67 94 L 05/02/18 09:00 18 05/02/18 08:00 98.8 F 93 H 18 133/72 93 L 05/01/18 21:00 91 H 16 95 05/01/18 20:00 99.3 F 102 H 20 134/77 94 L 05/01/18 16:00 99.6 F 83 20 128/62 92 L - General General Appearance: Alert, Oriented x3, Cooperative, No acute distress Limitations: No limitations - Head Head exam: Atraumatic, Normocephalic, Normal inspection - Eye Eye exam: Normal appearance, PERRL, EOMI - ENT ENT exam: Normal exam Ear exam: Normal external inspection Mouth exam: Normal external inspection Throat exam: Normal inspection. negative: Tonsillar erythema, Tonsillar exudate - Neck Neck exam: Normal inspection, Full ROM. negative: Tenderness - Respiratory Respiratory exam: Normal lung sounds bilaterally, Chest wall tenderness (There is some L lateral posterior inferior rib tenderness to palpation.), Decreased breath sounds (LLL). negative: Respiratory distress - Cardiovascular Cardiovascular Exam: Regular rate, Normal rhythm, Normal heart sounds Peripheral Pulses: 2+: Radial (R), Radial (L), Dorsalis Pedis (R), Dorsalis Pedis (L) - GI/Abdominal GI/Abdominal exam: Soft, Normal bowel sounds. negative: Tenderness - Rectal Rectal exam: Deferred - exam: Deferred - Extremities Extremities exam: Normal inspection, Full ROM, Normal capillary refill. negative: Calf tenderness, Pedal edema, Tenderness - Back Back exam: Reports: Normal inspection - Neurological Neurological exam: Alert. negative: Motor sensory deficit - Psychiatric Psychiatric exam: Normal affect, Normal mood - Skin Skin exam: Dry, Intact, Warm. negative: Rash Assessment and Plan - Assessment and Plan (1) Pneumonia Current Visit: Yes Status: Acute Qualifiers: Pneumonia type: due to unspecified organism Laterality: left Lung location: lower lobe of lung Qualified Code(s): J18.1 - Lobar pneumonia, unspecified organism Base Code: J18.9 - PNEUMONIA, UNSPECIFIED ORGANISM Comment: 05/01/18 -PNA LLL, started Azith 500mg Rocephin 1gm, -CXR and CTA positive PNA, negative for PE -infreq cough -pain controlled with morhpine, was getting 4mg morphine but decreased to 2mg morphine q4hr PRN -cardiac enzymes abnormal but not significantly elevated, repeat 1400 -no blood culture in er before ABX started 05/02/18 -WBC have not trended down as anticipated, procalcitonin also not decreasing -ABX changed to mgt CAP and HAP. HAP r/t pt is in the hospital almost daily, frequenting hospital cafeteria, is chronically ill and pt is here daily during those admissions -PO azithromycin and adding Cefepime -Possible D/C POC would be if WBC and procalcitonin began to decrease, transition to cefdinir 300mg BID x10 days with PCP f/u (2) DVT (deep venous thrombosis) Current Visit: Yes Status: Acute Base Code: I82.409 - ACUTE EMBOLISM AND THOMBOS UNSP DEEP VN UNSP LOWER EXTREMITY Comment: 05/01/18 lovenox 40mg sq (3) Full code status Current Visit: Yes Status: Acute Base Code: Z78.9 - OTHER SPECIFIED HEALTH STATUS Comment: 05/01/18 full code Results - Labs Result Diagrams: 05/02/18 06:13 05/02/18 06:13 Labs Last 24 Hours: Laboratory Results - last 24 hr 04/30/18 05/01/18 05/01/18 16:45 06:15 14:19 WBC RBC Hgb Hct MCV MCH MCHC RDW Plt Count MPV Neutrophils % Band Neutrophils % Eosinophils % Basophils % Lymphocytes Monocytes Basophils Eosinophil Count Sodium Potassium Chloride Carbon Dioxide Anion Gap BUN Creatinine Estimated GFR POC Glucose Random Glucose Calcium Troponin T 0.014 H Procalcitonin 0.150 0.256 05/01/18 05/01/18 05/01/18 14:25 17:00 22:00 WBC RBC Hgb Hct MCV MCH MCHC RDW Plt Count MPV Neutrophils % Band Neutrophils % Eosinophils % Basophils % Lymphocytes Monocytes Basophils Eosinophil Count Sodium Potassium Chloride Carbon Dioxide Anion Gap BUN Creatinine Estimated GFR POC Glucose 174 H 202 H Random Glucose Calcium Troponin T Procalcitonin 0.269 05/02/18 05/02/18 05/02/18 06:13 06:13 06:13 WBC 13.2 H RBC 3.98 L Hgb 12.1 L Hct 36.8 L MCV 92.5 MCH 30.4 MCHC 32.9 RDW 13.6 Plt Count 287 MPV 8.3 Neutrophils % 83.0 H Band Neutrophils % 0.0 Eosinophils % Not Reportable Basophils % Not Reportable Lymphocytes 10.0 L Monocytes 6.0 Basophils 0.0 Eosinophil Count 1.0 Sodium 136 Potassium 4.2 Chloride 98 Carbon Dioxide 22.0 Anion Gap 16.0 BUN 23 Creatinine 0.9 Estimated GFR > 60 POC Glucose Random Glucose 179 H Calcium 8.5 L Troponin T Procalcitonin 0.243 05/02/18 11:30 WBC RBC Hgb Hct MCV MCH MCHC RDW Plt Count MPV Neutrophils % Band Neutrophils % Eosinophils % Basophils % Lymphocytes Monocytes Basophils Eosinophil Count Sodium Potassium Chloride Carbon Dioxide Anion Gap BUN Creatinine Estimated GFR POC Glucose 210 H Random Glucose Calcium Troponin T Procalcitonin DVT/PE Assessment - Risk for VTE Risk for VTE: No Risk Level: Moderate Risk Assessment Date: 05/01/18 Risk Assessment Time: 10:11 VTE Orders Placed or Will Be Placed: Yes - Active Medicaitons Current Medications: Current Medications Acetaminophen (Tylenol 500mg Tab) 500 mg PO Q6H PRN PRN Reason: PAIN - MILD(1-4)/FEVER Last Admin: 05/01/18 18:52 Dose: 500 mg Albuterol/Ipratropium (Duoneb) 3 ml INH RESP.Q4H PRN PRN Reason: WHEEZING Last Admin: 05/01/18 20:59 Dose: 3 ml Azithromycin (Zithromax) 250 mg PO DAILY [facility] Stop: 05/05/18 10:01 Last Admin: 05/02/18 10:14 Dose: 250 mg Enoxaparin Sodium (Lovenox) 40 mg SQ DAILY [facility] Last Admin: 05/02/18 10:14 Dose: 40 mg CEFEPIME HCL 2 gm/ Sodium (Chloride) 50 mls @ 100 mls/hr IVPB Q8H [facility] Last Infusion: 05/02/18 10:50 Dose: Infused Insulin Aspart (Novolog Flexpen) 1 unit SQ TIDINS [facility]; Protocol Last Admin: 05/02/18 12:49 Dose: 6 unit Meloxicam (Mobic) 15 mg PO DAILY [facility] Last Admin: 05/02/18 10:14 Dose: 15 mg Metoprolol Succinate (Toprol Xl) 50 mg PO DAILY [facility] Last Admin: 05/02/18 10:14 Dose: 50 mg Morphine Sulfate (Morphine Sulfate) 2 mg IVP Q4H PRN PRN Reason: PAIN - MILD TO MODERATE (1-7) Ondansetron HCl (Zofran) 4 mg IVP Q4H PRN PRN Reason: NAUSEA Last Admin: 04/30/18 22:46 Dose: 4 mg Patient Own Med: Zonisamide 100mg Capsules 2 each PO QHS [facility] Last Admin: 05/01/18 21:47 Dose: 2 each Pioglitazone HCl (Actos) 30 mg PO DAILY [facility] Last Admin: 05/02/18 10:14 Dose: 30 mg Simvastatin (Zocor) 40 mg PO QAM [facility] Last Admin: 05/02/18 10:14 Dose: 40 mg AMI Plan - Labs Result Diagrams: 05/02/18 06:13 05/02/18 06:13
[2018-05-02] MEDS: ACETAMINOPHEN 500 MG TABLET PO PRN (21:49)
[2018-05-02] MEDS: ZONISAMIDE 100 MG PO SCH (21:49)
[2018-05-03] MEDS: CEFEPIME HCL 2 GM in 0.9% SODIUM CHLORIDE 50ML 50 ML IVPB SCH (01:36)
[2018-05-03 06:16] LABS: BASO % 0.1 % (0-6); GRAN % 78.3 % (47-80); HEMATOCRIT 35.2 % (42.0-52.0); HEMOGLOBIN 11.8 gm/dl (14.0-18.0); LYMPH % 11.6 % (16-45); MEAN CELL VOLUME 92.4 fl (81-97); MEAN CORPUSCULAR HGB CONC 33.5 g/dl (32-36); PLATELET COUNT 317 K/uL (130-400); RED BLOOD COUNT 3.81 M/uL (4.40-5.70); RED CELL DISTRIBUTION WIDTH 13.5 % (11.5-14.5); WHITE BLOOD COUNT W/O DIFF 10.1 K/uL (4.2-12.2)
[2018-05-03 06:18] LABS: MEAN CORPUSCULAR HEMOGLOBIN 30.9 pg (27-33)
[2018-05-03] MEDS: NOVOLOG FLEXPEN (INSULIN ASPART) 100 UNITS/ML SQ SCH (07:54)
--- NOTE | 2018-05-03 08:54 | Discharge Summary ---
Providers Discharge Summary Date: 05/03/18 Date of admission: 04/30/18 19:28 Expected Date of Discharge: 05/03/18 Attending physician: KELSI PELAYO Primary care physician: MICKEY BACA D.O. Physical Exam - Vital Signs Vital Signs: Vital Signs - Last 24 Hrs Temp Pulse Resp BP BP Pulse Ox 05/03/18 08:01 20 05/03/18 08:00 98.6 F 96 H 18 150/91 94 L 05/02/18 20:46 99.3 F 93 H 20 120/72 95 05/02/18 16:00 98.5 F 88 18 145/78 94 L 05/02/18 12:00 98.6 F 90 18 123/67 94 L 05/02/18 09:00 18 - General General Appearance: Alert, Oriented x3, Cooperative, No acute distress Limitations: No limitations - Head Head exam: Atraumatic, Normocephalic, Normal inspection - Eye Eye exam: Normal appearance, PERRL, EOMI - ENT ENT exam: Normal exam Ear exam: Normal external inspection Mouth exam: Normal external inspection Throat exam: Normal inspection. negative: Tonsillar erythema, Tonsillar exudate - Neck Neck exam: Normal inspection, Full ROM. negative: Tenderness - Respiratory Respiratory exam: Normal lung sounds bilaterally, Chest wall tenderness (There is some L lateral posterior inferior rib tenderness to palpation.), Decreased breath sounds (LLL). negative: Respiratory distress - Cardiovascular Cardiovascular Exam: Regular rate, Normal rhythm, Normal heart sounds Peripheral Pulses: 2+: Radial (R), Radial (L), Dorsalis Pedis (R), Dorsalis Pedis (L) - GI/Abdominal GI/Abdominal exam: Soft, Normal bowel sounds. negative: Tenderness - Rectal Rectal exam: Deferred - exam: Deferred - Extremities Extremities exam: Normal inspection, Full ROM, Normal capillary refill. negative: Calf tenderness, Pedal edema, Tenderness - Back Back exam: Reports: Normal inspection - Neurological Neurological exam: Alert. negative: Motor sensory deficit - Psychiatric Psychiatric exam: Normal affect, Normal mood - Skin Skin exam: Dry, Intact, Warm. negative: Rash Hospitalization - Hospitalization Admission Diagnosis: 1. Acute Left Lower Lobe Pneumonia - Problem List/Discharge Diagnosis (1) Pneumonia Current Visit: Yes Status: Acute Discharge Diagnosis: Pneumonia type: due to unspecified organism Laterality: left Lung location: lower lobe of lung Qualified Code(s): J18.1 - Lobar pneumonia, unspecified organism Base Code: J18.9 - PNEUMONIA, UNSPECIFIED ORGANISM Comment: 05/03/18 -PNA LLL, received Azith 500mg Rocephin 1gm, -CXR and CTA positive PNA, negative for PE -infreq cough -WBC decreased to 10.1 today -Will d/c IV abx, transition to Cefdinir 300mg BID x 10 days -Patient to follow-up with PCP in 2 weeks - Hospitalization Course Disposition: Home, Self-Care Hospital Course: 82 yo male admitted for LLL PNA. PMH HTN, DM, and hyperlipidemia. Surgical hx of CABG x2 vessels, denies WI. Pt reported 3-5 days of fever and cough with discolored sputum. Denies any bloody sputum or hx of blood clots, leg pain or swelling. Pt ambulated into ER under his own power, c/o L post chest pain. Denied ant or substernal CP. 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 Admit for PNA with serial cardiac enzymes. Pt did not have BP noted through the night but AM BP stable. POC Continue Azithromycin and Rocephin, monitor cardiac enzymes, cont cardiac monitoring, pain mgt, VS q 4hrs. Monitor BG ac/hs, will add insulin s/s if elevation over 180 is noted. Pt did not req resp tx but PRN orders still remain. Repeat labs in am CBC, BMP PCP Rodriguez Specialist no psychiatric security nurse 05/03/18: Patient doing well, alert and oriented x 3, sitting up in chair. Ambulates with steady gait, no oxygen needs while in the hospital. Remains afebrile. WBC and procalcitonin trending down. Patient to dc home on Cefdinir 300mg PO BID x 10 days. Will follow-up with PCP Rodriguez in 2 weeks. Procedures: Imaging and X-Rays 04/30/18 16:52 CHEST 2 VIEWS [RAD] Stat 04/30/18 17:22 CHEST CTA w contrast [CTA] Stat Cardiology Procedures 04/30/18 16:52 Chaser Apprentice NOW EKG NOW 04/30/18 19:43 Chaser Apprentice .Continuous 05/01/18 14:00 EKG ONCE Abnormal Labs: Abnormal Lab Results 04/30/18 04/30/18 04/30/18 Range/Units 16:45 16:45 16:45 WBC 15.0 H (4.2-12.2) K/uL RBC 4.11 L (4.40-5.70) M/uL Hgb 12.7 L (14.0-18.0) gm/dl Hct 37.5 L (42.0-52.0) % Neutrophils % (47-80) % Lymphocytes % 12.1 L (16-45) % Monocytes % (0-9) % Lymphocytes (16-45) % PT 13.1 H (9.5-12.1) SECONDS D-Dimer 2.22 H (0-0.59) mg/L FEU Chloride 96 L (98-107) mmol/L Anion Gap 17.0 H (7-16) POC Glucose (70-110) mg/dL Random Glucose 238 H (74-109) mg/dL Calcium 8.6 L (8.8-10.2) mg/dL Troponin T 0.020 H (0-0.010) ng/mL 05/01/18 05/01/18 05/01/18 Range/Units 06:15 06:15 06:53 WBC 14.7 H (4.2-12.2) K/uL RBC 3.68 L (4.40-5.70) M/uL Hgb 11.4 L (14.0-18.0) gm/dl Hct 34.0 L (42.0-52.0) % Neutrophils % (47-80) % Lymphocytes % 15.6 L (16-45) % Monocytes % 9.5 H (0-9) % Lymphocytes (16-45) % PT (9.5-12.1) SECONDS D-Dimer (0-0.59) mg/L FEU Chloride (98-107) mmol/L Anion Gap (7-16) POC Glucose 171 H (70-110) mg/dL Random Glucose (74-109) mg/dL Calcium (8.8-10.2) mg/dL Troponin T 0.021 H (0-0.010) ng/mL 05/01/18 05/01/18 05/01/18 Range/Units 11:30 14:19 17:00 WBC (4.2-12.2) K/uL RBC (4.40-5.70) M/uL Hgb (14.0-18.0) gm/dl Hct (42.0-52.0) % Neutrophils % (47-80) % Lymphocytes % (16-45) % Monocytes % (0-9) % Lymphocytes (16-45) % PT (9.5-12.1) SECONDS D-Dimer (0-0.59) mg/L FEU Chloride (98-107) mmol/L Anion Gap (7-16) POC Glucose 177 H 174 H (70-110) mg/dL Random Glucose (74-109) mg/dL Calcium (8.8-10.2) mg/dL Troponin T 0.014 H (0-0.010) ng/mL 05/01/18 05/02/18 05/02/18 Range/Units 22:00 06:13 06:13 WBC 13.2 H (4.2-12.2) K/uL RBC 3.98 L (4.40-5.70) M/uL Hgb 12.1 L (14.0-18.0) gm/dl Hct 36.8 L (42.0-52.0) % Neutrophils % 83.0 H (47-80) % Lymphocytes % (16-45) % Monocytes % (0-9) % Lymphocytes 10.0 L (16-45) % PT (9.5-12.1) SECONDS D-Dimer (0-0.59) mg/L FEU Chloride (98-107) mmol/L Anion Gap (7-16) POC Glucose 202 H (70-110) mg/dL Random Glucose 179 H (74-109) mg/dL Calcium 8.5 L (8.8-10.2) mg/dL Troponin T (0-0.010) ng/mL 05/02/18 05/02/18 05/02/18 Range/Units 11:30 17:00 22:00 WBC (4.2-12.2) K/uL RBC (4.40-5.70) M/uL Hgb (14.0-18.0) gm/dl Hct (42.0-52.0) % Neutrophils % (47-80) % Lymphocytes % (16-45) % Monocytes % (0-9) % Lymphocytes (16-45) % PT (9.5-12.1) SECONDS D-Dimer (0-0.59) mg/L FEU Chloride (98-107) mmol/L Anion Gap (7-16) POC Glucose 210 H 144 H 149 H (70-110) mg/dL Random Glucose (74-109) mg/dL Calcium (8.8-10.2) mg/dL Troponin T (0-0.010) ng/mL 05/03/18 05/03/18 Range/Units 06:11 06:48 WBC (4.2-12.2) K/uL RBC 3.81 L (4.40-5.70) M/uL Hgb 11.8 L (14.0-18.0) gm/dl Hct 35.2 L (42.0-52.0) % Neutrophils % (47-80) % Lymphocytes % 11.6 L (16-45) % Monocytes % (0-9) % Lymphocytes (16-45) % PT (9.5-12.1) SECONDS D-Dimer (0-0.59) mg/L FEU Chloride (98-107) mmol/L Anion Gap (7-16) POC Glucose 150 H (70-110) mg/dL Random Glucose (74-109) mg/dL Calcium (8.8-10.2) mg/dL Troponin T (0-0.010) ng/mL Condition at Discharge: (2) Stable VTE Discharge VTE Reason For No Overlap Therapy: Not Indicated Discharge Medications - Discharge Medications Prescriptions: Cefdinir [Omnicef] 300 mg PO BID 10 Days #19 cap Home Medications: Ambulatory Orders Meloxicam [Mobic] 15 mg PO DAILY 05/14/17 [Last Taken 1 Day Ago ~04/29/18] Metoprolol Succinate [Toprol Xl] 50 mg PO DAILY 05/14/17 [Last Taken 1 Day Ago ~ 04/29/18] Pioglitazone HCl [Actos] 30 mg PO DAILY 05/14/17 [Last Taken 1 Day Ago ~04/29/18 ] Simvastatin 40 mg PO DAILY 05/14/17 [Last Taken 1 Day Ago ~04/29/18] Zonisamide 200 mg PO QHS 04/30/18 [Last Taken 1 Day Ago ~04/29/18] Cefdinir [Omnicef] 300 mg PO BID 10 Days #19 cap 05/03/18 [Last Taken Unknown] Discharge Plan - Discharge Instructions Activity at Discharge: Increase Activity as Tolerated Diet at Discharge: Regular Diet Additional Instructions: You were given Cefdinir this morning, take your next one this evening. You will take it twice a day. Follow-up with Dr. Baca in the next 2 weeks. Quality Measures - Quality Measures Quality Measures: Advance Directives, Documentation of Current Medications in Medical Record, Elder Maltreatment Screen and Follow-Up Plan, Screening for High Blood Pressure and F/U Documented - Current Medications Quality Measure: Measure #130: Documentation of Current Medications Documentation of Current Medications: <Current Medications Documented/Reviewed> [G5191] - Blood Pressure Screening Quality Measure: Screening for High Blood Pressure and Follow-Up Documented Does Patient Have Any of the Following: Active Dx of HTN Blood Pressure Classification: Hypertensive Reading Systolic Measurement: 140 Diastolic Measurement: 76 Screening for High Blood Pressure: Patient Exclusion, Hx of HTN [G9744] - Advance Directives Quality Measure: Measure #47: Care Plan Advance Directives Established: No Advance Directives Information Provided To Patient: No Advance Directives on File: No Living Will: No Power of Chemistry Tutor: No Advance Care Planning: <Care Plan/Decision Maker Not Decided; Discussed & Documented> [4591F] - Elder Abuse Suspicion Index Screening: Elder Abuse Suspicion Index Screening Rely on people for bathing, dressing, shopping, banking, etc: No Prevented from getting food, clothes, medication, etc: No Made to feel shamed or threatened by someone: No Forced to sign papers or use money against will: No Feel afraid, touched in ways not wanted or hurt physically: No Poor eye contact, withdrawn, malnourished, cuts or bruises: No Screening Result: Negative result EASI Reference Information: Aaron NEGRETE, Miriam C, Virginia D, Carlyn Santana.Development and validation of a tool to assist physicians identification of elder abuse: The Elder Abuse Suspicion Index (EASI ). Journal of Elder Abuse and Neglect, 2008; 20 (3): 276-300. - Elder Maltreatment Screen Quality Measures: Elder Maltreatment Screen and Follow-Up Plan Elder Maltreatment Screen: <Negative, No Follow-Up Plan Required> [G8734]
[2018-05-03] MEDS ORDERED: CEFDINIR 300 MG CAPSULE PO ONE (09:00)
[2018-05-03] MEDS: PIOGLITAZONE HCL 15 MG TABLET PO SCH (09:13)
[2018-05-03] MEDS: ENOXAPARIN 40 MG/0.4 ML SYR SQ SCH (09:13)
[2018-05-03] MEDS: METOPROLOL SUCC 50 MG TABLET PO SCH (09:13)
[2018-05-03] MEDS: MELOXICAM 7.5 MG TABLET PO SCH (09:13)
[2018-05-03] MEDS: SIMVASTATIN 20 MG TABLET PO SCH (09:13)
== END 2018-05-03 11:05 | disposition home or self-care (01) | DRG 195 ==
LOC: ER 16:22 → MEDSURG 19:28
PROVIDERS: ADMIT Internal Medicine; ATTEND Internal Medicine
DX: J18.1 Lobar pneumonia, unspecified organism (principal); I10 Essential (primary) hypertension; Z87.891 Personal history of nicotine dependence; Z95.1 Presence of aortocoronary bypass graft; E11.9 Type 2 diabetes mellitus without complications; E75.6 Lipid storage disorder, unspecified
CPT/HCPCS: 99285 ×2; 96365; 96375; 82550; 85025; 85730; 85610; 82553; 80048; 84145; 84484; 85379; 71046; 71275; 93005; 93010; Q9967; J2405; J2270; 36416; 82948; 85027; 94640; 94760; 99223; 99233; 99239; J0456; J1650; J7030; J7050

== ENCOUNTER 2018-10-06 07:49 | Day surgery (SDC) | payer MEDICARE ==
[~2018-10-06 07:49] MED LIST: CEFAZOLIN 2 Gram 2 GM/50 ML BAG IVPB ONE; CELECOXIB 100 MG CAPSULE PO ONE; FAMOTIDINE 20MG TABLET PO ONE; MECLIZINE 25 MG TABLET PO ONE; METOCLOPRAMIDE 10 MG TABLET PO ONE; VANCOMYCIN HCL 1,000 MG in DEXTROSE 5 % IN WATER 250 ML IVPB ONE
[2018-10-06] MEDS ORDERED: BUPIVACAINE 0.25% W/EPI MPF 30ML VIAL IVP ONE (07:50)
[2018-10-06] MEDS ORDERED: PHENYLEPHRINE HCL 10 MG/ML VIAL IVP ONE (07:50)
[2018-10-06] MEDS ORDERED: TRANEXAMIC ACID 1,000 MG/10 ML ML IV ONE (07:50)
[2018-10-06] MEDS ORDERED: ROPIVACAINE HCL (NAROPIN) /PF 5MG/ML 20ML VIAL IV ONE (07:50)
[2018-10-06] MEDS ORDERED: LIDOCAINE 2% MDV (20MG/ML) 20ML VIAL IV ONE (07:50)
[2018-10-06] MEDS ORDERED: DEXAMETHASONE 4 MG/ML 1ML VIAL IVP ONE (07:50)
[2018-10-06] MEDS ORDERED: MIDAZOLAM HCL 2MG/2ML VIAL IV ONE (07:50)
[2018-10-06] MEDS ORDERED: 0.9 % SODIUM CHLORIDE 100ML 100 ML IV ONE (07:50)
[2018-10-06] MEDS ORDERED: BUPIVACAINE LIPOSOME 266MG/20ML VIAL IV ONE ×2 (07:50)
[2018-10-06] MEDS ORDERED: PROPOFOL 10 MG/ML VIAL IV ONE (07:50)
[2018-10-06] MEDS ORDERED: EPHEDRINE SULFATE 50 MG/ML ML IV ONE (07:50)
[2018-10-06] MEDS ORDERED: HYDROCODONE/APAP 5/325MG TABLET PO PRN (11:40)
[2018-10-06] MEDS ORDERED: OXYCODONE HCL/APAP 5MG/325MG TABLET PO PRN (11:40)
[2018-10-06] MEDS ORDERED: HYDROMORPHONE HCL 2 MG/ML VIAL IV PRN (11:45)
[2018-10-06] MEDS ORDERED: ONDANSETRON HCL IV 4 MG/2 ML VIAL IVP PRN (11:45)
[2018-10-06] MEDS ORDERED: MAGNESIUM HYDROXIDE 30 ML UDC PO PRN (11:45)
[2018-10-06] MEDS ORDERED: TRAMADOL HCL 50 MG TABLET PO PRN ×2 (11:45)
[2018-10-06] MEDS ORDERED: DIPHENHYDRAMINE HCL 25 MG CAPSULE PO PRN (11:45)
[2018-10-06] MEDS ORDERED: ZOLPIDEM TARTRATE 5 MG TABLET PO PRN (11:45)
[2018-10-06] MEDS ORDERED: METOCLOPRAMIDE HCL 10 MG/2 ML VIAL IVP PRN (11:45)
[2018-10-06] MEDS ORDERED: SENNOSIDES/DOCUSATE SODIUM UD CAPSULE PO PRN (11:45)
[2018-10-06] MEDS ORDERED: AL HYDROX/MAG HYDROX 30ML UD PO PRN (11:45)
[2018-10-06] MEDS ORDERED: RINGERS SOLUTION,LACTATED 1,000 ML IV PRN (12:55)
[2018-10-06] MEDS ORDERED: TRANEXAMIC ACID 1,000 MG in 0.9 % SODIUM CHLORIDE 100ML 100 ML IVPB ONE (13:00)
[2018-10-06] MEDS: RINGERS SOLUTION,LACTATED 1,000 ML IV SCH (13:30)
[2018-10-06] MEDS: OXYCODONE HCL/APAP 5MG/325MG TABLET PO PRN ×2 (15:14→15:52)
--- NOTE | 2018-10-06 16:27 | Rehab Evaluation ---
Patient Information - Patient Information Diagnosis: L knee OA s/p L TKA Ordered Treatment: PT Evaluate and Treat Status: Initial Evaluation Surgery: Yes (L TKA ) Date of Surgery: 10/06/18 History: Detail (Pt with progressively worsening pain, weakness, and stiffness of L knee over past two years.) Past Medical/Surgical Hx: PAST MEDICAL/SURGICAL HISTORY Past Surgical History Heart bypass 2012 bilat cats hernia repair pilonidal cyst left lung drained 2017 after pneumonia PMH - Respiratory Hx Respiratory Disorders Yes Hx Bronchitis Yes Hx Pneumonia Yes: April 2018 Hx Sleep Apnea Yes Hx of CPAP No: does not use PMH - Cardiovascular Hx Cardiovascular Disorders Yes Hx Abnormal EKG Yes Hx Cardiac Catheterization Yes Hx Heart Attack Yes Hx Hypertension Yes: on meds good control Hx Coronary Artery Disease Yes Hx Coronary Artery Bypass Yes: 2012 double Graft Exercise Tolerance Fair Comment: Cardiac bypass PMH - Neuro Hx Neurological Disorders Yes Hx Seizures Yes: occurred 2 years ago, none since on meds Comment: due for EEG 05/25/2018 PMH - GI Hx Gastrointestinal Disorders No Hx Hiatal Hernia No: pt denies PMH - Hx Genitourinary Disorders Yes Hx Bladder Problem Yes: nocturia Comment: nocturia PMH - Endocrine Hx Endocrine Disorders Yes Hx Diabetes Yes: Type 2 Dx'd 2004 Hx Thyroid Disease No Hx of NIDDM Yes Comment: blood sugars around 145 PMH - Musculoskeletal Hx Musculoskeletal Disorders Yes Hx Arthritis Yes: knees Comment: has tingling down right leg related to ruptured disc PMH - Psych Hx Psychiatric Problems No PMH - Hematology/Oncology Hx Hematology/Oncology Yes Disorders Hx Bruising Yes: bruises easily Social History: Detail (Pt lives with spouse in a 1 story home with 2 steps to enter and no hand rails. The pt also has a ramp to enter home. Pt has a tub/ shower with grab bars, and elevated toilet. Pt currently owns a front wheeled walker, cane and shower chair.) Precautions: [place], Fall - Time With Patient Total Time Spent With Patient (Min): 25 Treatment Procedures: Detail (Pt eval completed, bed mobility, transfers, gait and pt education.) Subjective Information - Subjective Information Per Patient (Pt is awake and alert at start of session. Cooperative for therapy. Pt was left seated EOB at end of session with call light within reach , needs met and family attending at bedside. Nursing notified of pt's status.) Objective Data - Pain Pain Present: Yes Pain Intensity: 6 Pain Scale Used: Numeric (1 - 10) - Mental Status Patient Orientation: Oriented x3 - Visual Perception Appears within normal limits for therapeutic activities - ROM Not within normal limits (Decreased L knee flexion and extension ROM.) - Strength/Tone Not within normal limits (Decreased L hip flexion, L knee flexion/extension strength.) - Coordination Appears within normal limits for therapeutic activities - Bed Mobility Needs Assist (Pt performed sup>sit using bed rails, and SBA for safety.) - Transfers Needs Assist (Pt performed sit<>stand with RW and CGA for steadying and safety. Pt required verbal cues for transfer technique.) - Balance Balance Sitting: Good Balance Standing: Good - Sensation Intact (Intact for light touch.) - Gait Detail (Pt amb 100' with RW and CGA for balance and steadying. Pt amb with decreased step length on R, decreased weight shift to L, and increased weight bearing through B UE.) - Special Tests No Therapy Assessment - Therapy Assessment Detail (Pt's impairments are consistent with surgical procedure. Pt currently requiring assistance with transfers, bed mobility, and ambulation. Pt educated on LE exercises to perform in sitting and supine.) Patient Education - Patient Education Teaching Topic: Equipment Use, Exercise/Activity Response: Return Demonstration, Verbalize Understanding Teaching Method: Discussion Teaching Recipient: Patient, Significant Other Barriers To Learning: None Problem List - Problem List Physical Therapy Problem List: Detail (Impaired bed mobility, transfers and gait.) Goals - Goals Physical Therapy Goals: 1) Pt will perform bed mobility independently. 2) Pt will perform transfers with least restrictive assistive device, independent. 3 ) Pt will ambulate 150' with least restrictive assistive device, independent. 4 ) Pt will ascend/descend 2 steps with appropriate assistive device and min A for safety. Prognosis - Prognosis Good Plan - Plan Physical Therapy Plan: Pt will be seen by PT 1-2 times tomorrow to address current impairments to facilitate safe return home.
[2018-10-06] MEDS: CEFAZOLIN 2 Gram 2 GM/50 ML BAG IVPB SCH (17:31)
[2018-10-06] MEDS: HYDROCODONE/APAP 5/325MG TABLET PO PRN (19:19)
[2018-10-06] MEDS ORDERED: ZONISAMIDE 100 MG PO SCH (22:00)
[2018-10-06] MEDS ORDERED: ASPIRIN 325 MG TAB ENTERIC-COATED PO SCH (22:00)
[2018-10-07] MEDS: CEFAZOLIN 2 Gram 2 GM/50 ML BAG IVPB SCH ×2 (00:47→08:04)
[2018-10-07] MEDS: HYDROCODONE/APAP 5/325MG TABLET PO PRN ×3 (00:50→10:58)
[2018-10-07] MEDS: RINGERS SOLUTION,LACTATED 1,000 ML IV SCH (05:26)
[2018-10-07 07:01] LABS: HEMATOCRIT 35.5 % (42.0-52.0); HEMOGLOBIN 11.8 gm/dl (14.0-18.0); MEAN CELL VOLUME 90.8 fl (81-97); MEAN CORPUSCULAR HGB CONC 33.2 g/dl (32-36); MEAN PLATELET VOLUME 8.4 fl (7.4-10.4); PLATELET COUNT 160 K/uL (130-400); RED BLOOD COUNT 3.91 M/uL (4.40-5.70); RED CELL DISTRIBUTION WIDTH 14.2 % (11.5-14.5)
[2018-10-07 07:09] LABS: MEAN CORPUSCULAR HEMOGLOBIN 30.1 pg (27-33)
--- NOTE | 2018-10-07 09:00 | Operative Note ---
DATE OF SURGERY: 10/06/2018 Surgeon: Iván Malik DO Referring physician: Esau Frias DO PREOPERATIVE DIAGNOSIS: Primary osteoarthritis of the left knee. POSTOPERATIVE DIAGNOSIS: Primary osteoarthritis of the left knee. OPERATION: Left total knee arthroplasty. Anesthesia: Spinal. PROCEDURE: This 83-year-old male was taken to the operating room and placed in the supine position on the operating room table. A spinal anesthetic was administered and the left lower extremity was elevated, it was prepped with Hibiclens and draped in the usual sterile fashion, and exsanguinated and the tourniquet inflated to 300 mmHg. All scrubbed personnel wore personal isolation suits. An anterior longitudinal midline incision was made, followed by a medial parapatellar arthrotomy incision. An intracondylar drill hole was made for the intramedullary alignment david and because of the patient's flexor contracture, we took an additional millimeter of bone off the distal femur and subsequently a 10 mm 6 degree valgus cut was made and the wafers of bone were removed. We then placed a sizing jig on the distal femur and a size 75 was seen to be the appropriate size. A size 80 was going to be too big, so we moved the pin sites 2 mm anteriorly and put the 75 cutting block in 3 degrees of external rotation and the appropriate cuts were made and the wafers of bone were removed. We then directed our attention to the proximal tibia and an extramedullary alignment guide was used to cut the proximal tibia, referencing a 10 mm cut off of the lateral tibial plateau and the appropriate cut was made in 3 degrees of posterior slope. Subsequently, remnants of the menisci and osteophytes were removed from the posterior aspect of the joint. The tibia was sized to a size 83. A relatively large osteophyte was removed from the medial tibial plateau and a size 83 fit very well. A stem punch was subsequently used. Some drill holes were made in the medial tibial plateau because of the hard sclerotic surface which was present there. The wound was copiously irrigated with pulse lavage lactated Ringer's solution and all chips of bone were removed from the joint. The patella was cut and restored to anatomic height with a 37 x 10 mm patella. The femur, tibia and then a 10 mm bearing was seen to be the appropriate size, subsequently the knee was taken through a range of motion and found to be stable. We were able to flex him to 125 degrees with full extension and the patellofemoral joint was stable. All trial components were removed. Exparel was injected in the posterior medial and lateral corners of the joint and subsequently was injected in the periosteum and joint capsule, the proximal tibia and distal femur, after the final components were inserted. After copious irrigation, the bony surfaces were dried and all components were cemented and excess cement removed after the insertion of each component. The tibia was placed first, followed by the tibial bearing femoral component and finally the patella. Once the cement had hardened, the knee was again taken through range of motion with stability being identified as described previously. A drain was placed through a separate stab incision and the arthrotomy incision was closed with #2 Vicryl, re-enforced with #1 TiCron. The subcutaneous tissue closed with 0 Vicryl and the skin stapled. Sterile dressings were applied with a Polar Care. The patient taken to the recovery room in satisfactory condition. GROSS PATHOLOGY: This patient demonstrated very severe osteoarthritis, full-thickness articular cartilage loss noted in all compartments, but the medial compartment was the worst, with some bone loss present there in the tibia. Final components inserted were a [employer] Vanguard size 75 cruciate retaining femur, a size 83 tibia, a 10 mm anterior stabilized bearing, and a 37 x 10 mm patella was used. DONNY
[2018-10-07] MEDS ORDERED: MELOXICAM 7.5 MG TABLET PO SCH (10:00)
[2018-10-07] MEDS ORDERED: METOPROLOL SUCC 25 MG TAB.ER PO SCH (10:00)
[2018-10-07] MEDS ORDERED: LISINOPRIL 5 MG TABLET PO SCH (10:00)
[2018-10-07] MEDS ORDERED: SIMVASTATIN 20 MG TABLET PO SCH (10:00)
[2018-10-07] MEDS ORDERED: PIOGLITAZONE HCL 15 MG TABLET PO SCH (10:00)
--- NOTE | 2018-10-07 10:44 | Rehab Evaluation ---
Patient Information - Patient Information Diagnosis: L knee OA s/p L TKA Ordered Treatment: OT Evaluate and Treat Status: Initial Evaluation Surgery: Yes (L TKA ) Date of Surgery: 10/06/18 History: Detail (Pt with progressively worsening pain, weakness, and stiffness of L knee over past two years.) Past Medical/Surgical Hx: PAST MEDICAL/SURGICAL HISTORY Past Surgical History Heart bypass 2012 bilat cats hernia repair pilonidal cyst left lung drained 2017 after pneumonia PMH - Respiratory Hx Respiratory Disorders Yes Hx Bronchitis Yes Hx Pneumonia Yes: April 2018 Hx Sleep Apnea Yes Hx of CPAP No: does not use PMH - Cardiovascular Hx Cardiovascular Disorders Yes Hx Abnormal EKG Yes Hx Cardiac Catheterization Yes Hx Heart Attack Yes Hx Hypertension Yes: on meds good control Hx Coronary Artery Disease Yes Hx Coronary Artery Bypass Yes: 2012 double Graft Exercise Tolerance Fair Comment: Cardiac bypass PMH - Neuro Hx Neurological Disorders Yes Hx Seizures Yes: occurred 2 years ago, none since on meds Comment: due for EEG 05/25/2018 PMH - GI Hx Gastrointestinal Disorders No Hx Hiatal Hernia No: pt denies PMH - Hx Genitourinary Disorders Yes Hx Bladder Problem Yes: nocturia Comment: nocturia PMH - Endocrine Hx Endocrine Disorders Yes Hx Diabetes Yes: Type 2 Dx'd 2004 Hx Thyroid Disease No Hx of NIDDM Yes Comment: blood sugars around 145 PMH - Musculoskeletal Hx Musculoskeletal Disorders Yes Hx Arthritis Yes: knees Comment: has tingling down right leg related to ruptured disc PMH - Psych Hx Psychiatric Problems No PMH - Hematology/Oncology Hx Hematology/Oncology Yes Disorders Hx Bruising Yes: bruises easily Social History: Detail (Pt lives with spouse in a 1 story home with 2 steps to enter and no hand rails. The pt also has a ramp to enter home. Pt has a tub/ shower with grab bars, and elevated toilet. Pt currently owns a front wheeled walker, cane and shower chair. He is the primary caregiver for his and is responsible for home mgmt, meal prep and laundry.) Precautions: [place], Fall - Time With Patient Total Time Spent With Patient (Min): 35 Treatment Procedures: Detail (OT eval low complexity) Subjective Information - Subjective Information Per Patient Objective Data - Pain Pain Present: Yes (05/10) - Mental Status Patient Orientation: Oriented x3 - Visual Perception Appears within normal limits for therapeutic activities - ROM Within normal limits (Dani UE AROM WNL) - Strength/Tone Within normal limits (Dani UE strength WNL) - Coordination Appears within normal limits for therapeutic activities - Transfers Independent (Ind with sit to stand from EOB) - Balance Balance Sitting: Good Balance Standing: Good - Sensation Intact - ADL's/IADL's Detail (Pt educated and able to demonstrate learning of modified LE dressing techniques including doffing slipper socks and briefs and donning underwear, sweatpants and tennis shoes. Pt educated on shower and kitchen safety and modifications, pt able to verbalize understanding.) Therapy Assessment - Therapy Assessment Detail (Pt is Ind with modified LE dressing techniques.) Problem List - Problem List Physical Therapy Problem List: Detail (Impaired bed mobility, transfers and gait.) Occupational Therapy Problem List: Detail (No current IP OT problems identified. ) Goals - Goals Physical Therapy Goals: 1) Pt will perform bed mobility independently. 2) Pt will perform transfers with least restrictive assistive device, independent. 3 ) Pt will ambulate 150' with least restrictive assistive device, independent. 4 ) Pt will ascend/descend 2 steps with appropriate assistive device and min A for safety. Occupational Therapy Goals: No current IP OT goals identified. Prognosis - Prognosis Good Plan - Plan Physical Therapy Plan: Pt will be seen by PT 1-2 times tomorrow to address current impairments to facilitate safe return home. Occupational Therapy Plan: No further IP OT recommended. Thank you for this referral.
--- NOTE | 2018-10-07 11:06 | Physical Therapy Tx Note ---
Physical Therapy Tx Note - Treatment Note Tolerated: Good Total Time Spent With Patient: 30 Physical Therapy Tx Note: Detail (The patient was up in chair when PT arrived and c/o L knee pain level 7 at the highest using 0-10 pain scale. The patient was independent with sit to and from stand trainsfer. The patient was independent with supine to and from sit transfer with use of R LE to lift L LE. The patient ambulated with front wheeled walker a distance of 80 feet x 1 independently WBAT on L LE. The patient ambulated on stairs with use of railing and folded walker using proper technique with CG /supervision for safety. The patient completed the following TKA exercises: seated heel slides, quad sets, hamstring sets, gluteal sets, ankle pumps and SLR was reviewed ( patient was unable to complete due to quad region pain). The patient was able to isolate quad for a quad set with a strong contraction. The patient has met all inpatient PT goals and is to continue with Home PT.) Physical Therapy Problem List: Detail (Decreased L knee AROM and strength has to be expected s/p surgery. L knee pain) Physical Therapy Goals: 1) Pt will perform bed mobility independently. ( Goal Met). 2) Pt will perform transfers with least restrictive assistive device, independent.(Goal Met). 3) Pt will ambulate 150' with least restrictive assistive device, independent. (Goal Met- distance of 100 feet- currently not 150 feet but sufficient for discharge to home). 4) Pt will ascend/descend 2 steps with appropriate assistive device and min A for safety. (Goal met) Prognosis: Good Physical Therapy Plan: Patient has met all inpatient PT goals and is discharged from inpatient Pt and is to receive Home PT.
[2018-10-07] MEDS ORDERED: ACETAMINOPHEN 325 MG TAB PO PRN (11:45)
--- NOTE | 2018-10-10 09:40 | Discharge Summary ---
DATE OF ADMISSION: 10/06/2018 DATE OF DISCHARGE: 10/07/2018 ADMITTING DIAGNOSIS: Osteoarthritis of the left knee. DISCHARGE DIAGNOSIS: Osteoarthritis of the left knee. OPERATIVE PROCEDURE: Elective left total knee arthroplasty. DESCRIPTION: This 83-year-old male was taken to the operating room for a left total knee arthroplasty and tolerated the operative procedure well. He progressed satisfactorily with physical therapy and was ready for discharge the first postoperative day. The drain had been removed and bleeding controlled. He will wear his AYO hose during the day. He will have home physical therapy. He will take aspirin 325 mg daily. He was given a prescription for [place] 5 mg, #40, 1 every 4 hours as necessary for pain. Routine wound care instructions were given. He will follow up in 2 weeks. Should he have any problems prior to being seen, he was instructed to call my office. DONNY
== END 2018-10-07 14:55 | disposition home or self-care (01) ==
LOC: SUR 07:49 → MEDSURG 12:16 → SUR 10-07 14:55
PROVIDERS: ATTEND Orthopaedic Surgery
DX: M17.12 Unilateral primary osteoarthritis, left knee (principal); E11.9 Type 2 diabetes mellitus without complications; I10 Essential (primary) hypertension; Z95.1 Presence of aortocoronary bypass graft; I25.2 Old myocardial infarction
CPT/HCPCS: 27447; 01402; 85025; 90686; 64447; J3370; J0690 ×2; C9290; J3490; J2795; G8978; G8979 ×2; G8980; G8987; G8988; G8989; 76942; 97110; 97530; J2370; J7060